=== PATIENT | female | born 1965 | race Caucasian/White ===

== ENCOUNTER 2017-11-09 13:28 | Outpatient (CLI) | END 2017-11-09 13:29 | disposition home or self-care (01) | LOC: LAB 13:28 | PROVIDERS: ATTEND Family Medicine | DX: E03.9 Hypothyroidism, unspecified (principal); R53.81 Other malaise; R53.83 Other fatigue; Z13.220 Encounter for screening for lipoid disorders | CPT/HCPCS: 36415; 80053; 80061; 84443; 85025 ==

== ENCOUNTER 2018-02-05 15:55 | Outpatient (CLI) | END 2018-02-05 15:56 | disposition home or self-care (01) | LOC: FCC-LAB 15:55 | PROVIDERS: ATTEND Family Medicine | DX: F90.9 Attention-deficit hyperactivity disorder, unspecified type (principal); E03.9 Hypothyroidism, unspecified; R53.81 Other malaise | CPT/HCPCS: 36415; 80053; 84439; 84443 ==

== ENCOUNTER 2018-04-23 10:46 | Outpatient (CLI) | END 2018-04-23 10:47 | disposition home or self-care (01) | LOC: FCC-LAB 10:46 | PROVIDERS: ATTEND Family Medicine | DX: E03.9 Hypothyroidism, unspecified (principal); R94.6 Abnormal results of thyroid function studies | CPT/HCPCS: 36415; 84443 ==

== ENCOUNTER 2018-05-21 13:07 | Outpatient (CLI) | END 2018-05-21 13:08 | disposition home or self-care (01) | LOC: FCC-LAB 13:07 | PROVIDERS: ATTEND Family Medicine | DX: F90.9 Attention-deficit hyperactivity disorder, unspecified type (principal) | CPT/HCPCS: 80306 ==